=== PATIENT | female | born 1985 ===

== ENCOUNTER 2018-10-02 09:05 | Day surgery (SDC) | payer BC ==
[2018-10-02 09:22] VITALS: BMI 43.5
[2018-10-02] MEDS ORDERED: Propofol 10 mg/ml Inj (20 ML) ONE ×3 (11:32→11:52)
[2018-10-02] MEDS ORDERED: Lactated Ringer's 500 ML IV ONE (11:34)
[2018-10-02 12:54] VITALS: BP 107/59; PULSE 71; RESP 18; TEMP 98; O2SAT 100
== END 2018-10-02 12:45 | disposition home or self-care (01) ==
LOC: C.ENDO 09:05
PROVIDERS: ATTEND Internal Medicine Gastroenterology
DX: K64.1 Second degree hemorrhoids (principal); R10.32 Left lower quadrant pain; K58.9 Irritable bowel syndrome, unspecified; F41.9 Anxiety disorder, unspecified
CPT/HCPCS: 45378; 84703; J2001; J2704; J7120

== ENCOUNTER 2018-10-24 09:30 | Day surgery (SDC) | payer BC ==
[2018-10-17 08:35] VITALS: BMI 41.9
[2018-10-24] MEDS ORDERED: ceFAZolin 1 gm in NS 1 GM/100 ML BAG IVPB ONE (11:45)
[2018-10-24] MEDS ORDERED: Bupivacaine HCl 0.5% PF (10 ml) Inj ONE (11:46)
[2018-10-24] MEDS ORDERED: Lidocaine/Epinephrine 1% 1:100000 10 ML IJ ONE (11:46)
[2018-10-24] MEDS ORDERED: Propofol 10 mg/ml Inj (20 ML) ONE (12:15)
[2018-10-24] MEDS ORDERED: Midazolam 2 MG/2 ML VIAL ONE (12:15)
[2018-10-24] MEDS ORDERED: Rocuronium 10 mg/ml (5 ml) ONE (12:54)
[2018-10-24] MEDS ORDERED: Neostigmine 1:1000 (1 mg/ml) Inj ONE (13:57)
[2018-10-24] MEDS ORDERED: Dexamethasone 4 mg/1 ml IVP PRN (14:27)
[2018-10-24] MEDS: HYDROmorphone 0.5 mg/0.5 ml ISec IVP PRN ×2 (14:35→14:50)
[2018-10-24 16:12] VITALS: BP 90/55; PULSE 82; RESP 18; TEMP 98; O2SAT 100
--- NOTE | 2018-10-29 02:49 | OP ---
PROCEDURE DATE: 10/24/2018 SURGEON: Latisha Bunch MD APPRENTICE PHOTOGRAPHER: Narendra Reid MD and ALEXEY Yoder PREOPERATIVE DIAGNOSES: Abnormal uterine bleeding, chronic pelvic pain, endometriosis, ovarian cyst, tubal occlusion, bladder pain, urinary frequency, dysmenorrhea. POSTOPERATIVE DIAGNOSES: Abnormal uterine bleeding, chronic pelvic pain, endometriosis, ovarian cyst, tubal occlusion, bladder pain, urinary frequency, dysmenorrhea, mild hydroureter, pelvic adhesions. PROCEDURES PERFORMED: Exam under anesthesia, cystoscopy with bilateral ureteral catheterization and injection of IC-green, operative robot laparoscopy with lysis of adhesions, excision of endometriosis, ovarian lysis, lysis of adhesions. In addition, Dr. Narendra Reid was initially called in to assist for bilateral ureterolysis, adenolysis of the tube and ovary. ANESTHESIA: General endotracheal. ESTIMATED BLOOD LOSS: 25 mL. INPUT AND OUTPUT: Adequate. SPECIMENS: Endometrial curettings, endocervical curettings, pelvic adhesions, multiple peritoneal endometriotic implants all labeled out differently. INDICATIONS: The patient is a 33-year-old para 1 with a long lasting history of pelvic pain, dysmenorrhea, abdominal pain, bladder pain, diffuse genital pain of long duration. She had abnormal uterine bleeding. She had a full workup, which included imaging, which revealed the presence of a thickened endometrial stripe, ovarian cysts, possible dilated hydrosalpinx. The right ovary was clearly seemed to be adherent to the pelvic sidewall and there were adhesions noted and pelvic and retroperitoneal adhesions as well. Prior to the surgery, the patient was counseled in regards to all the risks and benefits of the procedure and she agreed to move forward with the surgery and alternatives having been exhausted, she has failed multiple medical therapies. She understood that because of particular difficulty of the procedure, she would necessitate a cystoscopy or placement of uterine substance and injection of IC-green of identifying the uterus throughout the difficult procedure and she agreed to that to which she signed the consent. She was taken to the OR. FINDINGS OF SURGERY: Exam under anesthesia revealed the uterus about 10 to 12 weeks size and cystoscopy revealed vascularity that appeared to be inflammatory lesions. No tumors within the bladder, no gross masses. The upper abdomen appeared to be normal with normal liver and normal ascending and descending colon, normal appendix. The pelvis revealed significant adhesions with the uterus anterior to the pelvic wall in addition to bladder adhesions anteriorly. The right ovary was adherent to the right pelvic sidewall with adhesions to it and were adherent to the ureter. The left ovary appeared adherent to the left fallopian tube which was adherent to the left pelvic sidewall in close proximity to the ureter. At this point, the patient was taken to the operating room and placed in dorsal lithotomy position. She was prepped and draped in the usual normal sterile fashion. Extreme attention was made in padding the patient every area prone to pressure. Also extreme attention was placed not to overextend or overflex the hips of the patient. A time-out was taken according to the hospital policy and the procedure was started. The first part of the procedure involved cystoscopy. The cystoscope was inserted into the bladder, 2 mL of fluid were inserted and the bladder appeared to be free of lesions. There was speculation vascularity noted within the cavity wall. Pictures were taken. Both the ureteral ostia were within the anatomical position. The left ureter was then cannulated with a 5 Vincentian open-ended catheter all the way to the distal ureter and 5 mL of IC green were injected. Similarly, the contralateral ureter were also cannulated all the way to the distal ureter and 5 mL of IC green were injected. At this point, the cystoscope was removed and a 16-Vincentian Heredia was inserted into the bladder. At this point, the speculum was placed in the vagina. The anterior lip of the cervix was grasped and the uterus was then sounded. The uterus was sequentially dilated to allow for introduction of hysteroscope under direct visualization using normal saline as distention media. There was a mass noted which was clearly resected, possible myoma. Hysteroscope was then removed. Gentle curettage was done and the uterine manipulator was then inserted into the uterus to help guide with retraction and positioning of the uterus. After re-gowning and gloving, attention was turned to the abdomen where laparoscopy was performed. An infraumbilical skin incision was made after the addition of 0.25% Marcaine which was given supraumbilically. The skin was then tented up with two towel clamps. The Veress needle was then inserted after two clicks were heard, and the confirmation of the water. The abdomen was then insufflated with a normal opening pressure. After this, the Veress needle was then inserted and the laparoscope was inserted under direct visualization after the skin incision was then extended. Please refer to note. Following this, the trocars were placed in the right and left lower quadrant, each approximately 8 mm, 8 cm from the midline, 5 cm from the pubic symphysis. The da Dariana robot had been docked in the usual standard fashion. Following this, extensive lysis of adhesions occurred to remove the omental adhesions draped over the ovary and fallopian tube. Following this, after careful traction, countertraction and dissection of the clear space and adhesions, it helped to visualize clearly the ovary and the tube, which appeared grossly abnormal. At that point due to more dense adhesions, Dr. Narendra Reid was called in to help with bilateral ureterolysis. Following this, after careful dissection and lysis of adhesions, the fallopian tube was noted to be adherent on the right side after the adhesions were . A deep endometriotic implant was noted in the right lower quadrant, the area that was adherent to the pelvic sidewall, which was carefully dissected after the ureter was dissected out. There appeared to be healthy ovarian tissue after that. There was other peritoneal implants noted to be endometriotic implants along the pelvic sidewall and posterior cul-de-sac that were removed and sent to pathology. The left ovarian and left fallopian tube, which were densely adherent to the pelvic sidewall, adhesions were carefully lysed and at that point again bilateral ureterolysis on the contralateral side had been performed. The left ovary and tube were now free and grossly appeared normal and the left tube was now patent and free of adhesions. Dr. Reid helped with adhesions removal, endometriosis, bilateral ureterolysis. At that point, all of the adhesions were removed. There was good hemostasis noted. All instruments were removed under direct visualization. The umbilical incision fascia was closed using a UR6 needle using S retractors and was noted to be closed. The skin was reapproximated and was closed with 3-0 Monocryl. There was good hemostasis noted. The uterine manipulator was removed. There was good hemostasis at the tenaculum puncture site. The Heredia catheter was removed. At the end of the procedure, all needle, sponge and instrument counts were correct x2. The patient tolerated the procedure well and transferred to the recovery room in stable condition. Latisha Bunch MD [facility] # [id number]
== END 2018-10-24 19:50 | disposition home or self-care (01) ==
LOC: C.SDS 09:30
PROVIDERS: ATTEND Obstetrics & Gynecology
DX: R10.2 Pelvic and perineal pain (principal); N83.209 Unspecified ovarian cyst, unspecified side; N93.9 Abnormal uterine and vaginal bleeding, unspecified
CPT/HCPCS: 36415; 52000; 58662; 88305; J0690; J1170; J1885; J2250; J2704; J2710; J3010